=== PATIENT | male | born 1960 | race Caucasian/White ===

== ENCOUNTER 2019-05-31 13:42 | Emergency (ER) | payer OTHER ==
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
[2019-05-31 14:29] VITALS: BP 118/80; PULSE 94; TEMP 99.5; BMI 28.4
== END 2019-05-31 14:34 | disposition home or self-care (01) ==
LOC: FER 13:42
DX: A08.4 Viral intestinal infection, unspecified (principal)
CPT/HCPCS: 99281-25